=== PATIENT | female | born 1985 | race Caucasian/White ===

== ENCOUNTER 2024-02-09 11:44 | Emergency (ER) | payer BC, MEDICAID ==
[~2024-02-09] VITALS: Ht 157.5 cm; Wt 60.5 kg
[2024-02-09 12:16] LABS: BASOPHILS % (AUTO) 0.8 % (0-1); EOSINOPHILS # (AUTO) 0.3 X10'3 (0-0.9); EOSINOPHILS % (AUTO) 4.8 % (0-6); HEMATOCRIT 37.7 % (35.0-45.0); HEMOGLOBIN 13.1 g/dl (12.0-16.0); LYMPHOCYTES # (AUTO) 1.8 X10'3 (1.1-4.8); LYMPHOCYTES % (AUTO) 29.9 % (21-51); MEAN CORPUSCULAR HEMOGLOBIN 30.3 PG (27.0-31.0); MEAN CORPUSCULAR HGB CONC 34.8 g/dL (33.0-36.5); MEAN PLATELET VOLUME 9.5 FL (7.4-10.4); MONOCYTES # (AUTO) 0.6 X10'3 (0-0.9); MONOCYTES % (AUTO) 9.8 % (2-12); NEUTROPHILS # (AUTO) 3.3 X10'3 (1.8-7.7); NEUTROPHILS % (AUTO) 54.7 % (42-75); PLATELET COUNT 256 X10'3 (140-440); RED BLOOD COUNT 4.34 X10'6 (4.20-5.60); RED CELL DISTRIBUTION WIDTH 13.5 % (11.5-14.5)
[2024-02-09 12:19] VITALS: BP 118/74; PULSE 97; O2SAT 98
[2024-02-09 12:25] LABS: ALANINE AMINOTRANSFERASE 17 U/L (12-78); ALBUMIN 4.2 G/DL (3.4-5.0); ALBUMIN/GLOBULIN RATIO 1.1 (1.1-1.5); ALKALINE PHOSPHATASE 60 IU/L (46-116); ANION GAP 6 (8-16); ASPARTATE AMINO TRANSFERASE 13 U/L (10-37); BILIRUBIN,TOTAL 0.4 MG/DL (0.1-1.0); BLOOD UREA NITROGEN 9 MG/DL (7-18); BUN/CREATININE RATIO 9.9 (10.0-20.0); CALCIUM 8.7 MG/DL (8.5-10.1); CHLORIDE 104 MMOL/L (99-107); CREATININE 0.91 MG/DL (0.40-0.90); GLUCOSE 88 MG/DL (70-104); SODIUM 140 MMOL/L (135-145); TOTAL CARBON DIOXIDE 29.6 MMOL/L (24-32); TOTAL PROTEIN 8.2 G/DL (6.4-8.2); eCRCL 66 ML/MIN; eGFR 69 ML/MIN
[2024-02-09 12:34] LABS: PRO BRAIN NATRIURETIC PEPTIDE < 30 PG/ML (0-125)
[2024-02-09] MEDS: LIDOcaine 2% Viscous 15ml cup MM PRN (14:00)
[2024-02-09] MEDS: mag hydrox/Alum hydrox/simeth 30ml oral suspension PO ONE (14:00)
[2024-02-09] MEDS: acetaminophen 325mg tablet PO ONE (14:01)
[2024-02-09] MEDS: ondansetron 4mg rapidly disintigrating tab PO ONE (14:01)
[2024-02-09 14:13] VITALS: RESP 18
[2024-02-09] MEDS: potassium Cl 20 mEq SR tablet PO ONE (14:19)
[2024-02-09 14:24] VITALS: TEMP 99.2
== END 2024-02-09 14:26 | disposition home or self-care (01) ==
LOC: ER 11:45
DX: R00.2 Palpitations (principal); R07.2 Precordial pain; R11.0 Nausea
CPT/HCPCS: 36415; 71045; 80053; 83880; 84484; 85025; 93005; 99285

== ENCOUNTER 2024-04-14 05:53 | Emergency (ER) | payer BC, MEDICAID ==
[~2024-04-14] VITALS: Ht 157.5 cm; Wt 59.1 kg
[2024-04-14 07:04] LABS: BILIRUBIN,URINE NEGATIVE (Neg); CLARITY,URINE CLEAR (Clear); COLOR,URINE YELLOW (Yellow); GLUCOSE, URINE NEGATIVE (Neg); KETONES,URINE NEGATIVE (Neg); LEUKOCYTE ESTERASE ,URINE NEGATIVE (Neg); NITRITES, URINE NEGATIVE (Neg); OCCULT BLOOD,URINE SMALL (Neg); PROTEIN,URINE NEGATIVE (Neg); UROBILINOGEN,URINE 0.2 E.U/dL (0.2-1.0)
[2024-04-14 07:08] LABS: UA COLLECTION TYPE CLN CATCH MIDSTREAM
[2024-04-14 07:10] LABS: SQUAMOUS EPITHELIAL CELL,UR MODERATE /LPF (FEW)
[2024-04-14 07:14] LABS: BACTERIA,URINE NONE SEEN /HPF (Neg); RBC,URINE 0-2 /HPF (0-2); WBC,URINE 0-4 /HPF (0-4)
[2024-04-14] MEDS: ketorolac trometh 15mg/ml vial 15 MG/ML ML IV ONE (07:14)
[2024-04-14] MEDS: normal saline 1000ML IV soln IVB ONE (07:14)
[2024-04-14 07:33] LABS: URINE HCG NEGATIVE (NEG)
[2024-04-14 07:34] LABS: BASOPHILS % (AUTO) 0.5 % (0-1); EOSINOPHILS # (AUTO) 0.3 X10'3 (0-0.9); EOSINOPHILS % (AUTO) 3.8 % (0-6); HEMATOCRIT 38.5 % (35.0-45.0); HEMOGLOBIN 13.2 g/dl (12.0-16.0); LYMPHOCYTES % (AUTO) 12.6 % (21-51); MEAN CORPUSCULAR HEMOGLOBIN 30.3 PG (27.0-31.0); MEAN CORPUSCULAR HGB CONC 34.4 g/dL (33.0-36.5); MEAN CORPUSCULAR VOLUME 88.1 FL (78-98); MEAN PLATELET VOLUME 8.9 FL (7.4-10.4); MONOCYTES # (AUTO) 0.5 X10'3 (0-0.9); MONOCYTES % (AUTO) 6.6 % (2-12); NEUTROPHILS % (AUTO) 76.5 % (42-75); PLATELET COUNT 233 X10'3 (140-440); RED BLOOD COUNT 4.37 X10'6 (4.20-5.60); RED CELL DISTRIBUTION WIDTH 13.6 % (11.5-14.5); WHITE BLOOD COUNT 7.9 X10'3 (4.5-11.0)
[2024-04-14 08:11] LABS: ALANINE AMINOTRANSFERASE 20 U/L (12-78); ALBUMIN 4.1 G/DL (3.4-5.0); ALKALINE PHOSPHATASE 77 IU/L (46-116); ANION GAP 9 (8-16); ASPARTATE AMINO TRANSFERASE 17 U/L (10-37); BILIRUBIN,TOTAL 0.5 MG/DL (0.1-1.0); BLOOD UREA NITROGEN 7 MG/DL (7-18); BUN/CREATININE RATIO 9.7 (10.0-20.0); CHLORIDE 104 MMOL/L (99-107); CREATININE 0.72 MG/DL (0.40-0.90); GLUCOSE 79 MG/DL (70-104); LIPASE 51 U/L (16-77); POTASSIUM 3.4 MMOL/L (3.5-5.1); SODIUM 137 MMOL/L (135-145); TOTAL CARBON DIOXIDE 23.6 MMOL/L (24-32); TOTAL PROTEIN 8.4 G/DL (6.4-8.2); eCRCL 84 ML/MIN; eGFR > 90 ML/MIN
[2024-04-14] MEDS ORDERED: ONDA-243 PO (10:20)
[2024-04-14] MEDS ORDERED: CYCL-1 PO (10:20)
[2024-04-14 10:47] VITALS: BP 130/75; PULSE 99; RESP 15; TEMP 98.5; O2SAT 99
== END 2024-04-14 10:47 | disposition home or self-care (01) ==
LOC: ER 05:53 → EEVIPCON 05:53 → ER 10:47
DX: M54.6 Pain in thoracic spine (principal); R10.11 Right upper quadrant pain; Z87.442 Personal history of urinary calculi
CPT/HCPCS: 36415; 74176; 76856; 80053; 81001; 81025; 83690; 85025; 93976; 96361; 96374; 99285; J1885; J7030

== ENCOUNTER 2024-05-27 19:12 | Emergency (ER) | payer BC, MEDICAID ==
[~2024-05-27] VITALS: Ht 162.6 cm; Wt 65.9 kg
[~2024-05-27 19:12] MED LIST: CYCL-1 PO; ONDA-243 PO
[2024-05-27 19:13] VITALS: TEMP 98.7
[2024-05-27 19:33] VITALS: BP 137/80; PULSE 85; O2SAT 100
[2024-05-27 19:39] LABS: BASOPHILS % (AUTO) 0.7 % (0-1); EOSINOPHILS # (AUTO) 0.3 X10'3 (0-0.9); EOSINOPHILS % (AUTO) 5.3 % (0-6); HEMATOCRIT 34.7 % (35.0-45.0); HEMOGLOBIN 11.9 g/dl (12.0-16.0); LYMPHOCYTES # (AUTO) 2.1 X10'3 (1.1-4.8); LYMPHOCYTES % (AUTO) 34.2 % (21-51); MEAN CORPUSCULAR HEMOGLOBIN 30.3 PG (27.0-31.0); MEAN CORPUSCULAR HGB CONC 34.2 g/dL (33.0-36.5); MEAN CORPUSCULAR VOLUME 88.5 FL (78-98); MEAN PLATELET VOLUME 8.8 FL (7.4-10.4); MONOCYTES # (AUTO) 0.6 X10'3 (0-0.9); MONOCYTES % (AUTO) 9.2 % (2-12); NEUTROPHILS # (AUTO) 3.1 X10'3 (1.8-7.7); NEUTROPHILS % (AUTO) 50.6 % (42-75); PLATELET COUNT 254 X10'3 (140-440); RED BLOOD COUNT 3.92 X10'6 (4.20-5.60); RED CELL DISTRIBUTION WIDTH 13.6 % (11.5-14.5); WHITE BLOOD COUNT 6.1 X10'3 (4.5-11.0)
[2024-05-27 19:45] VITALS: RESP 16
[2024-05-27] MEDS: ketorolac trometh 15mg/ml vial 15 MG/ML ML IV ONE (19:45)
[2024-05-27 19:54] LABS: ALANINE AMINOTRANSFERASE 23 U/L (12-78); ALKALINE PHOSPHATASE 73 IU/L (46-116); ANION GAP 8 (8-16); ASPARTATE AMINO TRANSFERASE 16 U/L (10-37); BILIRUBIN,TOTAL 0.3 MG/DL (0.1-1.0); BLOOD UREA NITROGEN 8 MG/DL (7-18); BUN/CREATININE RATIO 10.7 (10.0-20.0); CALCIUM 8.8 MG/DL (8.5-10.1); CHLORIDE 104 MMOL/L (99-107); CREATININE 0.75 MG/DL (0.40-0.90); GLUCOSE 89 MG/DL (70-104); POTASSIUM 3.4 MMOL/L (3.5-5.1); SODIUM 140 MMOL/L (135-145); TOTAL CARBON DIOXIDE 28.4 MMOL/L (24-32); TOTAL PROTEIN 8.2 G/DL (6.4-8.2); eCRCL 88 ML/MIN; eGFR 86 ML/MIN
[2024-05-27 20:04] LABS: PRO BRAIN NATRIURETIC PEPTIDE < 30 PG/ML (0-125)
[2024-05-27] MEDS: potassium Cl 20 mEq SR tablet PO STA (20:30)
[2024-05-27] MEDS: acetaminophen 325mg tablet PO ONE (20:31)
== END 2024-05-27 20:32 | disposition home or self-care (01) ==
LOC: ER 19:13
DX: R07.89 Other chest pain (principal)
CPT/HCPCS: 36415; 71045; 80053; 83880; 84484; 85025; 93005; 96374; 99285; J1885